=== PATIENT | female | born 1980 | race Two or more races ===

== ENCOUNTER → 2016-07-02 | Day surgery (SDC) | payer MEDICAID ==
--- NOTE | 2016-06-29 07:05 | SC.ANESEVA ---
Anesthesia Eval & Plan ([facility]) - Medications/Allergies Allergies: Allergies hydrocodone bitartrate [From Vicodin] Allergy (Verified 06/06/16 09:37) Itching sumatriptan [From Imitrex] Allergy (Verified 06/06/16 09:37) See Comments INCREASED B/P sumatriptan succinate [From Imitrex] Allergy (Verified 06/06/16 09:37) See Comments MAKES BP GOE UP Current Medication List: Reviewed - Focused Physical Exam NPO since: Since after Midnight Mallampati: Class II Thyromental Distance: Greater than 3 Neck: Full Range of Motion Dental: Normal - no significant findings Cardiovascular/Chest: Normal (RRR no mumurs or rubs.) Respiratory: Lungs clear. negative: Wheezing Any problems with anesthesia, including nausea and vomiting?: No Any relatives with a history of Malignant Hyperthermia?: No Other: Diagnoses RIGHT UPPER QUADRANT PAIN (07/02/16) NAUSEA (07/02/16) Problem List Problem Status Onset Upper respiratory infection Acute Allergies Allergy/AdvReac Type Severity Reaction Status Date / Time hydrocodone bitartrate Allergy Itching Verified 06/06/16 09:37 [From Vicodin] sumatriptan [From Imitrex] Allergy See Verified 06/06/16 09:37 Comments sumatriptan succinate Allergy See Verified 06/06/16 09:37 [From Imitrex] Comments Home Medications Medication Instructions Recorded Last Taken Type Levocetirizine Dihydrochloride 5 mg PO DAILY 10/22/14 06/05/16 History [Xyzal] Tramadol HCl [Ultram] 50 mg PO DAILY 06/05/16 06/05/16 History Omeprazole [Prilosec] 20 mg PO BID 06/06/16 06/05/16 History Ranitidine [Zantac] 150 mg PO HS 06/06/16 06/05/16 History Height and Weight Patient's height 5 ft 1 in Patient's weight 79.379 kg BMI 33.0 - Anesthetic Plan Anesthesia Type: General ASA Class: 3 - Focused Review of Systems Cardiac History: No: Hx Cardiac Disorders HEENT: Yes: Hx Vision Problem, Other HEENT Problems Respiratory: Yes: Hx Asthma, Hx Snoring Gastrointestinal: Yes: Hx Gastroesophageal Reflux Disease, Hx Gastrointestinal Disorders, Hx Chronic Constipation, Hx Endoscopy (7-10 YRS AGO) No: Hx Obstructive Bowel Neurological/Musculoskeletal: Yes: Hx Migraine, Hx Neurological Disorders Blood/Autoimmune: No: Hx AIDS, Hx Hepatitis (type) Smoking Status: Never smoker Surgical History: Yes: T&A
[~2016-07-02] MED LIST: BUPIVACAINE 0.25% 30 ML VIAL INF ONE; DEXAMETHASONE 4 MG/ML VIAL ONE; FENTANYL 100 MCG/2 ML VIAL IV PRN; FENTANYL 100 MCG/2 ML VIAL ONE; IOHEXOL (Omnipaque-300) 30 ml vial INSTILL ONE; KETOROLAC TROMETH 30 MG/ML VIAL IV PRN; KETOROLAC TROMETH 30 MG/ML VIAL ONE; MIDAZOLAM 2 MG/2 ML VIAL ONE; ONDANSETRON HCL 4 MG/2 ML VIAL IV PRN; ONDANSETRON HCL 4 MG/2 ML VIAL ONE; PROPOFOL 200 MG/20 ML VIAL IV ONE; ROCURONIUM 50 MG/5 ML VIAL IV ONE
[2016-07-02 08:33] VITALS: BMI 32.5
--- NOTE | 2016-07-02 11:13 | HIMOPRPT ---
PROCEDURE: DATE OF PROCEDURE: 07/02/16 PREOPERATIVE DIAGNOSES: Chronic Cholecystitis. POSTOPERATIVE DIAGNOSES: Chronic Cholecystitis. PROCEDURE: Laparoscopic cholecystectomy with intraoperative cholangiogram. SURGEON: Dom Del Toro MD ANESTHESIA: General. COMPLICATIONS: None. ESTIMATED BLOOD LOSS: <5cc OPERATIVE NOTE: The patient was placed supine on the operative table. After induction of general anesthesia and endotracheal intubation, the patient was prepped and draped in the usual fashion. Time-out was taken. The patient was re- identified and the procedure was verified, and was given pre-operative antibiotics. An infraumbilical incision was made and a 5-mm Optiview trocar was placed without difficulties. The abdomen was insufflated with CO2 until a pressure of 15 mm HG was achieved. The camera was introduced and we inspected the abdominal cavity. The liver was smooth without any nodularities or masses. At this point, we placed two 5 mm ports in the right upper quadrant under direct visualization and an 11-mm port in the epigastric region. We were able to place a grasper on the dome, the other on the infundibulum of the gallbladder. The [place] of [place] was dissected using lateral retraction of the infundibulum thus exposing this critical angle between the cystic duct and CBD. The peritoneal attachment around the infundibulum of the gallbladder to the liver was dissected free using electrocautery. Thus giving a partial retrograde dissection. This allowed the visualization of the cystic duct and artery as they entered the gallbladder. Having developed this Critical View of Safety at the triangle of [place] we proceeded with our cholangiogram. A [place] clamp was placed across the body of the gallbladder, the tip of the catheter was inserted into the infundibulum. We then were able to flush this. Using the C -arm fluoroscopy unit, we performed a cholangiogram. In real time, we saw the passage of contrast throughout the biliary tree, common hepatic, common bile duct, and emptying readily into the duodenum. No filling defects were noted. This was a normal cholangiogram. At this point, the catheter was removed. Clips were placed on the cystic duct and artery and these structures were divided. A PDS loop was placed around the cystic duct stump. We then removed the gallbladder off the liver bed using electrocautery. The liver bed remained completely hemostatic. We removed the gallbladder and placed it into a laparoscopic retrieval bag. We irrigated the operative field and suctioned out the irrigation. We then removed the ports allowing the CO2 to escape. The patient then had the large port site closed at the level of the fascia using #0- Vicryl sutures. The wounds were all irrigated and infiltrated with 0.25% Marcaine. The skin edges were approximated using 4-0 Monocryl and Dermabond. The patient tolerated this well. Sponge, needle, and instrument counts were correct.
--- NOTE | 2016-07-02 11:14 | PCM.DCS92 ---
Discharge Outpatient Note Additional Instructions: INSTRUCTIONS: 07/02/16 Resume home medications Stool softener or laxative of choice as needed Diet: Low Fat Diet Okay to shower tomorrow No Lifting anything 30lbs or greater No driving x4 days (and only if not taking pain medications) Call office for a follow up appointment [phone]
[2016-07-02 11:41] VITALS: TEMP 97.6
[2016-07-02 12:20] VITALS: BP 126/76; PULSE 80
--- NOTE | 2016-07-02 12:57 | SC.ANESPOS ---
Post-Anesthesia Note LOC: Fully Awake Post-Anesthesia Assessment: Awake, Returned to Baseline, Hemodynamically Stable , Pain Control Adequate Phase I & II Recovery Complete: Yes Apparent Anesthesia Complication: No : N - Vital Signs Blood Pressure: 126/76 Pulse: 80 Resp Rate: 16 O2 Sat: 97 Temp: 97.6 F
== END ==
LOC: SDC 07:36
PROVIDERS: ATTEND Surgery
PROC: 0FT44ZZ Resection of Gallbladder, Percutaneous Endoscopic Approach (ICD-10-PCS; principal; 2016-07-02 07:15)
DX: K81.1 Chronic cholecystitis (principal); J45.909 Unspecified asthma, uncomplicated; E11.9 Type 2 diabetes mellitus without complications; K21.9 Gastro-esophageal reflux disease without esophagitis; G43.909 Migraine, unspecified, not intractable, without status migrainosus; K42.9 Umbilical hernia without obstruction or gangrene; Z79.899 Other long term (current) drug therapy
CPT/HCPCS: 47563; J1100; J1885; J2250; J2405; J2704; J3010; J3490; Q9967